=== PATIENT | female | born 1985 | race African-American/Black ===

== ENCOUNTER 2022-07-06 06:04 | Inpatient (IN) | payer MEDICAID, OTHER ==
[~2022-07-06] VITALS: Ht 170.2 cm; Wt 145.1 kg
[2022-07-06 07:35] LABS: Urine Bacteria FEW /hpf (None Seen); Urine Blood Negative /uL (Negative); Urine Specific Gravity 1.037 (1.001-1.035); Urine WBC <1 /hpf (0 - 5)
[2022-07-06] MEDS ORDERED: cefTRIAXone SOD 1,000 MG VL IM ONE (09:00)
[2022-07-06] MEDS ORDERED: SODIUM CHLORIDE 0.9% 1,000 ML IV ONE (09:15)
[2022-07-06] MEDS ORDERED: SODIUM CHLORIDE 0.9% 2,000 ML IV ONE (09:15)
[2022-07-06] MEDS ORDERED: CLINDAMYCIN 900MG IV 50 ML IV ONE (09:15)
[2022-07-06] MEDS ORDERED: cefTRIAXone 1GM/50ML D5W 50 ML IV ONE (09:15)
[2022-07-06 10:12] LABS: Basophils # (auto) 0 10 ^3/uL (0-0.2); Hematocrit 41.3 % (36.0-46.0); Hemoglobin 13.5 g/dL (12.2-16.2); Lymphocytes % (auto) 39.8 % (10.0-50.0); Mean Corpuscular Hemoglobin 26.4 pg (28.0-32.0); Mean Corpuscular Hgb Conc. 32.6 g/dL (32.0-36.0); Monocytes # (auto) 0.4 10 ^3/uL (0-1.3)
[2022-07-06 10:14] LABS: Basophils % (auto) 0.5 % (0.0-2.0); Eosinophils # (auto) 0.2 10 ^3/uL (0-0.8); Eosinophils % (auto) 2.3 % (0.0-7.0); Lymphocytes # (auto) 2.8 10 ^3/uL (0.4-5.4); Mean Corpuscular Volume 80.8 fL (80.0-100.0); Monocytes % (auto) 5.6 % (0.0-12.0); Neutrophils # (auto) 3.6 10 ^3/uL (1.6-8.6); Neutrophils % (auto) 51.8 % (37.0-80.0); Nucleated Red Blood Cells % 0.1 %; Red Blood Cells 5.11 10^6/uL (4.0-5.20); Red Cell Distribution Width 14.3 % (11.8-14.3); White Blood Cell 6.9 10^3/uL (4.4-10.8)
[2022-07-06 10:28] LABS: Potassium 4.6 mmol/L (3.5-5.1)
[2022-07-06 10:29] LABS: Calcium 9.2 mg/dL (8.5-10.1)
[2022-07-06] MEDS ORDERED: InsuLIN REG 1unit/0.01ml Soln (100units/ml) IV ONE ×2 (11:00→11:15)
[2022-07-06] MEDS: InsuLIN REG 1unit/0.01ml Soln (100units/ml) SC SCH ×3 (11:30→22:50)
[2022-07-06] MEDS ORDERED: DEXTROSE (50%) 50ML SYRG IV PRN (11:30)
[2022-07-06] MEDS: SODIUM CHLORIDE 0.9% 1,000 ML IV SCH (11:39)
[2022-07-06] MEDS: ACCU-CHEK COMFORT CURVE STRIP VI SCH ×3 (11:45→22:00)
[2022-07-06 13:01] LABS: Cholesterol 231 mg/dL (< 200)
[2022-07-06 13:05] LABS: HDL Cholesterol 47 mg/dL (40-59); LDL Cholesterol 174 mg/dL (< 100); Triglycerides 164 mg/dL (< 150)
[2022-07-06] MEDS: ACETAMINOPHEN 325 MG TAB PO PRN (16:24)
[2022-07-06 22:48] VITALS: BP 119/84
[2022-07-06] MEDS: ASCORBIC ACID 500 MG TAB PO SCH (22:50)
[2022-07-07] MEDS: CLINDAMYCIN 600MG IV 50 ML IV SCH ×3 (01:00→18:05)
[2022-07-07 05:00] VITALS: BP 112/66
[2022-07-07] MEDS: InsuLIN REG 1unit/0.01ml Soln (100units/ml) SC SCH ×4 (05:53→21:59)
[2022-07-07] MEDS: ACCU-CHEK COMFORT CURVE STRIP VI SCH ×4 (07:00→22:12)
[2022-07-07 08:00] VITALS: BP 134/60
[2022-07-07] MEDS: ACETAMINOPHEN 325 MG TAB PO PRN (08:06)
[2022-07-07 08:21] LABS: Hemoglobin 11.5 g/dL (12.2-16.2); Mean Corpuscular Hemoglobin 26.7 pg (28.0-32.0); Mean Corpuscular Hgb Conc. 32.8 g/dL (32.0-36.0); Mean Corpuscular Volume 81.4 fL (80.0-100.0); Red Cell Distribution Width 13.9 % (11.8-14.3)
[2022-07-07 08:27] LABS: Band Neutrophils % (manual) 0; Basophils % (manual) 0 (0.0-2.0); Blast Cells 0; Metamyelocytes % 0; Myelocytes % 0; Promyelocytes % 0; Reactive Lymphocytes 0
[2022-07-07 08:30] VITALS: BP 134/60
[2022-07-07 08:34] LABS: Albumin 2.8 g/dL (3.4-5.0); Calcium 8.4 mg/dL (8.5-10.1); Potassium 4.1 mmol/L (3.5-5.1)
[2022-07-07 08:40] LABS: Bilirubin, Total 0.5 mg/dL (0.2-1.0); Total Protein 5.7 g/dL (6.4-8.2)
[2022-07-07 09:51] LABS: Eosinophils % (manual) 4 (0-7); Lymphocytes % (manual) 46 (10.0-50.0); Monocytes % (manual) 4 (0-12)
[2022-07-07] MEDS: MULTIPLE VITAMIN TAB PO SCH (10:57)
[2022-07-07] MEDS: ENOXAPARIN SOD 40 MG/0.4 ML SYRINGE SC SCH (10:57)
[2022-07-07] MEDS: ASCORBIC ACID 500 MG TAB PO SCH ×2 (10:58→22:12)
[2022-07-07] MEDS: ZINC SULFATE 220mg CAP or TAB PO SCH (10:58)
[2022-07-07] MEDS: cefTRIAXone 1GM/50ML D5W 50 ML IV SCH (12:04)
[2022-07-07 12:30] VITALS: BP 112/73
[2022-07-07] MEDS ORDERED: KETOROLAC TROMETH 30 MG/ML 1ML VIAL IV PRN (12:45)
[2022-07-07] MEDS: SODIUM CHLORIDE 0.9% 1,000 ML IV SCH ×2 (13:13)
[2022-07-07 17:02] VITALS: BP 110/57
[2022-07-07] MEDS: ATORVASTATIN 20 MG TAB PO SCH (22:12)
[2022-07-07 22:30] VITALS: BP 113/80
[2022-07-08] VITALS (7 sets, daily range): BP systolic 112–155; BP diastolic 64–94
[2022-07-08] MEDS: SODIUM CHLORIDE 0.9% 1,000 ML IV SCH ×2 (01:00→12:53)
[2022-07-08] MEDS: CLINDAMYCIN 600MG IV 50 ML IV SCH ×3 (01:49→18:59)
[2022-07-08] MEDS: InsuLIN REG 1unit/0.01ml Soln (100units/ml) SC SCH ×3 (06:02→17:00)
[2022-07-08] MEDS: ACCU-CHEK COMFORT CURVE STRIP VI SCH ×4 (06:49→22:08)
[2022-07-08] MEDS: cefTRIAXone 1GM/50ML D5W 50 ML IV SCH (10:25)
[2022-07-08] MEDS: ZINC SULFATE 220mg CAP or TAB PO SCH (10:26)
[2022-07-08] MEDS: ASCORBIC ACID 500 MG TAB PO SCH ×2 (10:26→22:01)
[2022-07-08] MEDS: MULTIPLE VITAMIN TAB PO SCH (10:26)
[2022-07-08] MEDS: ENOXAPARIN SOD 40 MG/0.4 ML SYRINGE SC SCH (10:26)
[2022-07-08] MEDS ORDERED: DEXTROSE (50%) 50ML SYRG IV PRN (10:45)
[2022-07-08] MEDS ORDERED: InsuLIN REG 1unit/0.01ml Soln (100units/ml) SC SCH (22:00)
[2022-07-08] MEDS: ATORVASTATIN 20 MG TAB PO SCH (22:04)
[2022-07-09] MEDS: CLINDAMYCIN 600MG IV 50 ML IV SCH ×2 (02:48→10:32)
[2022-07-09] MEDS: SODIUM CHLORIDE 0.9% 1,000 ML IV SCH (02:48)
[2022-07-09 05:00] VITALS: BP 109/59
[2022-07-09] MEDS: ACCU-CHEK COMFORT CURVE STRIP VI SCH ×2 (06:22→11:40)
[2022-07-09] MEDS: InsuLIN REG 1unit/0.01ml Soln (100units/ml) SC SCH ×2 (06:27→12:09)
[2022-07-09 08:00] VITALS: BP 121/72
[2022-07-09 09:00] VITALS: BP 121/72
[2022-07-09] MEDS: cefTRIAXone 1GM/50ML D5W 50 ML IV SCH (09:34)
[2022-07-09] MEDS ORDERED: METF-372 PO (09:49)
[2022-07-09] MEDS ORDERED: CLIN300C8 PO (09:49)
[2022-07-09] MEDS ORDERED: ATO40T PO (09:55)
[2022-07-09] MEDS: ZINC SULFATE 220mg CAP or TAB PO SCH (10:32)
[2022-07-09] MEDS: ENOXAPARIN SOD 40 MG/0.4 ML SYRINGE SC SCH (10:33)
[2022-07-09] MEDS: MULTIPLE VITAMIN TAB PO SCH (10:33)
[2022-07-09] MEDS: ASCORBIC ACID 500 MG TAB PO SCH (10:33)
[2022-07-09 11:36] VITALS: BP 121/72
== END 2022-07-09 12:42 | disposition home or self-care (01) | DRG 383 ==
LOC: ER 06:04 → OVERFLOW 11:34 → EAST 22:50
PROVIDERS: ADMIT Nurse Practitioner Family; ATTEND Family Medicine
DX: L03.116 Cellulitis of left lower limb (principal); N17.9 Acute kidney failure, unspecified; R64 Cachexia; E87.1 Hypo-osmolality and hyponatremia; L02.416 Cutaneous abscess of left lower limb; W57.XXXA Bitten or stung by nonvenomous insect and other nonvenomous arthropods, initial encounter; E66.01 Morbid (severe) obesity due to excess calories; Z20.822 Contact with and (suspected) exposure to COVID-19; E78.00 Pure hypercholesterolemia, unspecified; E11.65 Type 2 diabetes mellitus with hyperglycemia; Z79.899 Other long term (current) drug therapy; Z68.43 Body mass index [BMI] 50.0-59.9, adult; Y93.89 Activity, other specified; Y92.89 Other specified places as the place of occurrence of the external cause; Y99.8 Other external cause status
CPT/HCPCS: 36415; 80048; 80053; 80061; 81001; 81025; 82962; 83036; 83605; 84443; 85007; 85025; 85027; 87040; 87077; 87186; 87205; 87426; 96361; 96365; 96368; 96372; 96375; G0378; J0696; J1815; J1885; J3490